=== PATIENT | female | born 1995 | race African-American/Black ===

== ENCOUNTER 2017-03-31 23:04 | Emergency (ER) | payer MEDICAID ==
[2017-04-01 00:23] VITALS: BP 145/88
== END 2017-04-01 00:23 | disposition home or self-care (01) ==
LOC: ED 23:04
DX: J02.9 Acute pharyngitis, unspecified (principal); H92.02 Otalgia, left ear; Z79.899 Other long term (current) drug therapy

== ENCOUNTER 2017-05-10 17:41 | Emergency (ER) | payer MEDICAID ==
[~2017-05-10] VITALS: Ht 165.1 cm; Wt 119.0 kg
[2017-05-10 20:09] VITALS: BP 136/71
== END 2017-05-10 19:59 | disposition home or self-care (01) ==
LOC: ED 17:41
DX: J02.9 Acute pharyngitis, unspecified (principal); M79.1 Myalgia; Z88.8 Allergy status to other drugs, medicaments and biological substances; Z79.1 Long term (current) use of non-steroidal anti-inflammatories (NSAID)

== ENCOUNTER 2018-05-27 13:22 | Emergency (ER) | payer MEDICAID ==
[~2018-05-27] VITALS: Ht 165.1 cm; Wt 126.1 kg
[2018-05-27 13:37] VITALS: BP 128/80; Ht 165.1 cm; Wt 126.1 kg
[2018-05-27 14:59] LABS: BASOPHIL % 0.5 % (0-2); PLATELET COUNT 294 x10^3mcL (130-400)
[2018-05-27 15:02] LABS: RED CELL DISTRIBUTION WIDTH 15.2 % (11.5-14.5)
[2018-05-27 15:18] LABS: CALCIUM 8.9 mg/dL (8.5-10.1); CARBON DIOXIDE 27.7 mmol/L (21-32); CHLORIDE SERUM 104 mmol/L (98-107); CREATININE SERUM 0.8 mg/dL (0.6-1.0); GFR1 > 60 mL/min; GLUCOSE SERUM 97 mg/dL (74-106); POTASSIUM SERUM 3.8 mmol/L (3.5-5.1); SODIUM SERUM 139 mmol/L (136-145)
[2018-05-27 15:22] LABS: ALBUMIN 3.9 g/dL (3.4-5.0); ALKALINE PHOSPHATASE 76 U/L (46-116); ALT/SGPT 14 U/L (14-59); AST/SGOT 10 U/L (15-37); BILIRUBIN TOTAL 0.4 mg/dL (0.20-1.00); LIPASE 85 IU/L (73-393); TOTAL PROTEIN, SERUM 7.8 g/dL (6.4-8.2)
== END 2018-05-27 15:38 | disposition home or self-care (01) ==
LOC: ED 13:22
PROVIDERS: Emergency Medicine
DX: R10.9 Unspecified abdominal pain (principal); Z88.8 Allergy status to other drugs, medicaments and biological substances; R11.2 Nausea with vomiting, unspecified; R19.7 Diarrhea, unspecified
CPT/HCPCS: 36415; J1885

== ENCOUNTER 2019-02-27 12:05 | Emergency (ER) | payer OTHER ==
[~2019-02-27] VITALS: Ht 162.6 cm; Wt 117.5 kg
[2019-02-27 12:10] VITALS: Ht 162.6 cm; Wt 117.5 kg
[2019-02-27 14:00] LABS: BASOPHIL % 0.6 % (0-2); PLATELET COUNT 307 x10^3mcL (130-400)
[2019-02-27 14:02] LABS: RED CELL DISTRIBUTION WIDTH 15.3 % (11.5-14.5)
[2019-02-27 14:09] LABS: CALCIUM 9.4 mg/dL (8.5-10.1); CARBON DIOXIDE 25.3 mmol/L (21-32); CHLORIDE SERUM 103 mmol/L (98-107); CREATININE SERUM 0.8 mg/dL (0.6-1.0); GFR1 > 60 mL/min; GLUCOSE SERUM 96 mg/dL (74-106); POTASSIUM SERUM 3.8 mmol/L (3.5-5.1); SODIUM SERUM 137 mmol/L (136-145)
[2019-02-27 14:13] LABS: ALBUMIN 3.9 g/dL (3.4-5.0); ALKALINE PHOSPHATASE 66 U/L (46-116); ALT/SGPT 17 U/L (14-59); AST/SGOT 11 U/L (15-37); BILIRUBIN TOTAL 0.46 mg/dL (0.20-1.00); LIPASE 83 IU/L (73-393); TOTAL PROTEIN, SERUM 8.1 g/dL (6.4-8.2)
[2019-02-27 14:24] LABS: UA SPECIFIC GRAVITY 1.025 (1.005-1.035); microscopic required? YES; urine erythrocyte TRACE (NEGATIVE)
[2019-02-27 15:48] VITALS: BP 140/82
[2019-02-28] MEDS ORDERED: [UNRECOGNIZED DRUG - CODE] PO (03:46)
[2019-02-28] MEDS ORDERED: SEROQUEL25 MG PO ×2 (03:47→03:50)
[2019-02-28] MEDS ORDERED: OXCARBAZEPINE300 M1 PO (03:48)
[2019-02-28] MEDS ORDERED: OMEPRAZOLE40 M1 PO (03:48)
[2019-02-28] MEDS ORDERED: IMITREX50 MG PO (03:49)
[2019-02-28] MEDS ORDERED: FLA500 PO (03:50)
[2019-02-28] MEDS ORDERED: BUSPIRONE HYDR7.5 MG PO (03:51)
== END 2019-02-27 15:48 | disposition home or self-care (01) ==
LOC: ED 12:05
PROVIDERS: Emergency Medicine
DX: G43.909 Migraine, unspecified, not intractable, without status migrainosus (principal); K29.70 Gastritis, unspecified, without bleeding; Z98.890 Other specified postprocedural states; Z88.8 Allergy status to other drugs, medicaments and biological substances
CPT/HCPCS: 36415; J0780; Q0162

== ENCOUNTER 2019-02-28 00:51 | Inpatient (IN) | payer OTHER ==
[~2019-02-28] VITALS: Ht 162.6 cm; Wt 124.7 kg
[2019-02-28 00:55] VITALS: Ht 162.6 cm; Wt 124.7 kg
[2019-02-28 02:13] LABS: CALCIUM 9.8 mg/dL (8.5-10.1); CARBON DIOXIDE 23.4 mmol/L (21-32); CHLORIDE SERUM 103 mmol/L (98-107); CREATININE SERUM 1.1 mg/dL (0.6-1.0); GFR1 > 60 mL/min; GLUCOSE SERUM 115 mg/dL (74-106); POTASSIUM SERUM 3.4 mmol/L (3.5-5.1); SODIUM SERUM 138 mmol/L (136-145)
[2019-02-28 02:14] LABS: BASOPHIL % 1.3 % (0-2); PLATELET COUNT 315 x10^3mcL (130-400); RED CELL DISTRIBUTION WIDTH 13.8 % (11.5-14.5)
[2019-02-28 02:18] LABS: ALBUMIN 4.1 g/dL (3.4-5.0); ALKALINE PHOSPHATASE 66 U/L (46-116); ALT/SGPT 17 U/L (14-59); AMYLASE 53 U/L (25-115); AST/SGOT 11 U/L (15-37); BILIRUBIN TOTAL 0.41 mg/dL (0.20-1.00); LIPASE 112 IU/L (73-393)
[2019-02-28] MEDS ORDERED: [UNRECOGNIZED DRUG - CODE] PO (03:46)
[2019-02-28] MEDS ORDERED: SEROQUEL25 MG PO ×2 (03:47→03:50)
[2019-02-28] MEDS ORDERED: OXCARBAZEPINE300 M1 PO (03:48)
[2019-02-28] MEDS ORDERED: OMEPRAZOLE40 M1 PO (03:48)
[2019-02-28] MEDS ORDERED: IMITREX50 MG PO (03:49)
[2019-02-28] MEDS ORDERED: FLA500 PO (03:50)
[2019-02-28] MEDS ORDERED: BUSPIRONE HYDR7.5 MG PO (03:51)
[2019-02-28 04:37] LABS: MAGNESIUM 2.1 mg/dL (1.8-2.4); PHOSPHOROUS 3.7 mg/dL (2.5-4.9)
[2019-02-28 05:57] VITALS: BP 128/61
[2019-02-28 05:57] LABS: UA SPECIFIC GRAVITY >=1.030 (1.005-1.035); microscopic required? YES; urine erythrocyte 3+ (NEGATIVE)
[2019-02-28 06:05] LABS: AMPHETAMINE QUAL UR NONE DETECTED (See below)
[2019-02-28 09:46] VITALS: BP 110/58
[2019-02-28 16:30] VITALS: BP 114/67
[2019-02-28 20:13] VITALS: BP 118/77
[2019-03-01 05:14] VITALS: BP 137/69
[2019-03-01 07:36] LABS: BASOPHIL % 0.7 % (0-2); PLATELET COUNT 255 x10^3mcL (130-400); RED CELL DISTRIBUTION WIDTH 15.1 % (11.5-14.5)
[2019-03-01 07:49] LABS: CHLORIDE SERUM 105 mmol/L (98-107); CREATININE SERUM 0.7 mg/dL (0.6-1.0); GFR1 > 60 mL/min; GLUCOSE SERUM 91 mg/dL (74-106); MAGNESIUM 2.1 mg/dL (1.8-2.4); PHOSPHOROUS 3.4 mg/dL (2.5-4.9); POTASSIUM SERUM 3.5 mmol/L (3.5-5.1); SODIUM SERUM 138 mmol/L (136-145)
[2019-03-01 08:45] VITALS: BP 147/51
[2019-03-01 17:39] VITALS: BP 138/95
[2019-03-01 21:30] VITALS: BP 146/67
[2019-03-02 06:47] VITALS: BP 125/69
[2019-03-02 06:54] LABS: BASOPHIL % 0.4 % (0-2); PLATELET COUNT 255 x10^3mcL (130-400)
[2019-03-02 06:58] LABS: RED CELL DISTRIBUTION WIDTH 14.9 % (11.5-14.5)
[2019-03-02 07:08] LABS: CALCIUM 9.1 mg/dL (8.5-10.1); CARBON DIOXIDE 25.3 mmol/L (21-32); CHLORIDE SERUM 104 mmol/L (98-107); CREATININE SERUM 0.7 mg/dL (0.6-1.0); GFR1 > 60 mL/min; GLUCOSE SERUM 90 mg/dL (74-106); POTASSIUM SERUM 3.5 mmol/L (3.5-5.1); SODIUM SERUM 138 mmol/L (136-145)
[2019-03-02 08:16] VITALS: BP 120/69
[2019-03-02] MEDS ORDERED: FLO4 PO (10:17)
[2019-03-02] MEDS ORDERED: TOR10 PO (10:19)
[2019-03-02 11:11] VITALS: BP 120/69
[2019-03-02 11:38] VITALS: BP 141/86
== END 2019-03-02 12:15 | disposition home or self-care (01) | DRG 465 ==
LOC: ED 00:51 → MU 04:27
PROVIDERS: Emergency Medicine; ADMIT Internal Medicine
DX: N20.1 Calculus of ureter (principal); E78.5 Hyperlipidemia, unspecified; G43.809 Other migraine, not intractable, without status migrainosus; N20.0 Calculus of kidney; F32.9 Major depressive disorder, single episode, unspecified; E87.6 Hypokalemia; Z88.8 Allergy status to other drugs, medicaments and biological substances; Z98.891 History of uterine scar from previous surgery
CPT/HCPCS: J1885; J2270; J2405; J3010; J3490; J7030; Q0092

== ENCOUNTER 2019-03-06 13:40 | Emergency (ER) | payer OTHER ==
[~2019-03-06] VITALS: Ht 162.6 cm; Wt 115.7 kg
[~2019-03-06 13:40] MED LIST: BUSPIRONE HYDR7.5 MG PO; FLA500 PO; FLO4 PO; IMITREX50 MG PO; OMEPRAZOLE40 M1 PO; OXCARBAZEPINE300 M1 PO; SEROQUEL25 MG PO; TOR10 PO; [UNRECOGNIZED DRUG - CODE] PO
[2019-03-06 13:45] VITALS: Ht 162.6 cm; Wt 115.7 kg
[2019-03-06 15:11] LABS: BASOPHIL % 0.7 % (0-2); PLATELET COUNT 294 x10^3mcL (130-400)
[2019-03-06 15:12] LABS: RED CELL DISTRIBUTION WIDTH 14.8 % (11.5-14.5)
[2019-03-06 16:16] LABS: CALCIUM 9.5 mg/dL (8.5-10.1); CARBON DIOXIDE 26.9 mmol/L (21-32); CHLORIDE SERUM 104 mmol/L (98-107); CREATININE SERUM 0.8 mg/dL (0.6-1.0); GFR1 > 60 mL/min; GLUCOSE SERUM 95 mg/dL (74-106); POTASSIUM SERUM 3.7 mmol/L (3.5-5.1); SODIUM SERUM 142 mmol/L (136-145)
[2019-03-06 16:20] LABS: ALKALINE PHOSPHATASE 63 U/L (46-116); ALT/SGPT 12 U/L (14-59); AST/SGOT 9 U/L (15-37); BILIRUBIN TOTAL 0.3 mg/dL (0.20-1.00); LIPASE 66 IU/L (73-393); TOTAL PROTEIN, SERUM 8.1 g/dL (6.4-8.2)
[2019-03-06 18:47] VITALS: BP 123/79
== END 2019-03-06 18:47 | disposition home or self-care (01) ==
LOC: ED 13:40
PROVIDERS: Emergency Medicine
DX: R10.32 Left lower quadrant pain (principal); N20.0 Calculus of kidney; Z98.890 Other specified postprocedural states; Z88.8 Allergy status to other drugs, medicaments and biological substances
CPT/HCPCS: J1885; J2270; J2405; J7030

== ENCOUNTER 2019-03-21 03:17 | Emergency (ER) | payer OTHER ==
[~2019-03-21] VITALS: Ht 162.6 cm; Wt 116.6 kg
[2019-03-21 03:23] VITALS: Ht 162.6 cm; Wt 116.6 kg
[2019-03-21 07:04] LABS: BASOPHIL % 0.6 % (0-2); PLATELET COUNT 261 x10^3mcL (130-400)
[2019-03-21 07:11] LABS: RED CELL DISTRIBUTION WIDTH 14.7 % (11.5-14.5)
[2019-03-21 07:25] LABS: ALBUMIN 4.2 g/dL (3.4-5.0); ALKALINE PHOSPHATASE 61 U/L (46-116); AST/SGOT 8 U/L (15-37); CALCIUM 9.7 mg/dL (8.5-10.1); GFR1 > 60 mL/min; GLUCOSE SERUM 95 mg/dL (74-106); LIPASE 68 IU/L (73-393)
[2019-03-21 07:39] LABS: ALT/SGPT 15 U/L (14-59); BILIRUBIN TOTAL 0.37 mg/dL (0.20-1.00); CARBON DIOXIDE 24.6 mmol/L (21-32); CHLORIDE SERUM 104 mmol/L (98-107); POTASSIUM SERUM 3.6 mmol/L (3.5-5.1); SODIUM SERUM 140 mmol/L (136-145); TOTAL PROTEIN, SERUM 8.2 g/dL (6.4-8.2)
[2019-03-21 09:00] VITALS: BP 107/68
== END 2019-03-21 09:00 | disposition home or self-care (01) ==
LOC: ED 03:17
PROVIDERS: Emergency Medicine
DX: N23 Unspecified renal colic (principal); E66.9 Obesity, unspecified; F32.9 Major depressive disorder, single episode, unspecified; Z68.41 Body mass index [BMI] 40.0-44.9, adult; Z87.442 Personal history of urinary calculi; Z88.8 Allergy status to other drugs, medicaments and biological substances
CPT/HCPCS: 36415; Q0092

== ENCOUNTER 2020-08-18 17:35 | Emergency (ER) | payer OTHER ==
[~2020-08-18] VITALS: Ht 165.1 cm; Wt 102.1 kg
[2020-08-18 17:44] VITALS: Ht 165.1 cm; Wt 102.1 kg
[2020-08-18 19:36] VITALS: BP 108/65
== END 2020-08-18 19:36 | disposition home or self-care (01) ==
LOC: ED 17:35
DX: N94.6 Dysmenorrhea, unspecified (principal); Z88.8 Allergy status to other drugs, medicaments and biological substances; Z98.890 Other specified postprocedural states

== ENCOUNTER 2020-11-26 18:04 | Emergency (ER) | payer OTHER ==
[~2020-11-26] VITALS: Ht 165.1 cm; Wt 96.2 kg
[2020-11-26 18:10] VITALS: Ht 165.1 cm; Wt 96.2 kg
[2020-11-26 22:14] VITALS: BP 108/57
== END 2020-11-26 22:14 | disposition home or self-care (01) ==
LOC: ED 18:04
DX: G43.909 Migraine, unspecified, not intractable, without status migrainosus (principal); M79.10 Myalgia, unspecified site; Z20.822 Contact with and (suspected) exposure to COVID-19; Z98.890 Other specified postprocedural states; Z88.8 Allergy status to other drugs, medicaments and biological substances
CPT/HCPCS: J1885; J7030; J8597; Q0163; U0003